=== PATIENT | female | born 1940 | race Caucasian/White ===

== ENCOUNTER 2016-11-23 21:02 | Emergency (ER) | payer OTHER, MEDICARE ==
[~2016-11-23] VITALS: Ht 157.5 cm; Wt 68.0 kg
[2016-11-23 21:26] VITALS: BP 147/78
[2016-11-23] MEDS ORDERED: KEFLEX500 M1 PO (21:46)
--- NOTE | 2016-11-23 21:47 | ED SKIN/ALLERGY COMPLAINT ---
History of Present Illness General Chief Complaint: Laceration Procedure Stated Complaint: LEFT POINTER FINGER LAC Source: patient Exam Limitations: no limitations Vital Signs & Intake/Output Vital Signs & Intake/Output Vital Signs Date Time Temp Pulse Resp B/P Pulse O2 O2 Flow FiO2 Ox Delivery Rate 11/23 2125 97.8 78 18 147/78 98 Room Air Triage Note: RECEIVED 76 YO FEMALE C/O LACERATION TO LEFT INDEX FINGER. OCCURED A FEW HOURS AGO. Triage Nurses Notes Reviewed? yes HPI: THIS PATIENT is a 76-year-old female with a past medical history including diabetes who presented to the emergency department today for evaluation of a laceration to her left index finger. The patient reported that she was trying to cut a cantaloupe when the knife slipped and caught her finger. She reported that she is having 4 out of 10, throbbing, nonradiating, constant pain in her finger. She denied any numbness or tingling. No palliative factors. No provoking factors. She is unsure of her last tetanus immunization. (LIANA VILLARREAL,ANA) Allergies Coded Allergies: protamine (THROAT CLOSED 11/23/16) Reconcile Medications Aspirin (Ecotrin*) 81 MG TABLET.DR 1 TAB PO DAILY HEART/BLOOD (Reported) Carvedilol 12.5 MG TABLET 1 TAB PO BID HEART/BP (Reported) Cephalexin (Keflex) 500 MG CAPSULE 1 CAP PO TID WOUND Cholecalciferol (Vitamin D3) (Vitamin D) 1,000 UNIT TABLET 1 TAB PO DAILY SUPPLEMENT (Reported) Cinnamon Bark (Cinnamon) (Unknown Strength) CAPSULE (Unknown Dose) PO DAILY SUPPLEMENT (Reported) Digoxin 125 MCG TABLET 1 TAB PO DAILY HEART (Reported) Duloxetine HCl 30 MG CAPSULE.DR 1 CAP PO DAILY MENTAL HEALTH (Reported) Fluticasone/Vilanterol (Breo Ellipta 100-25 Mcg INH) 100 MCG-25 MCG/DOSE BLST.W.DEV 1 PUFF INH DAILY COPD/ASTHMA (Reported) Furosemide 40 MG TABLET 1 TAB PO BID DIURETIC (Reported) Ipratropium [place] (Atrovent Hfa) 17 MCG/ACTUATION HFA.AER.AD 1 PUFF INH TID COPD/ASTHMA (Reported) Linagliptin (Tradjenta) 5 MG TABLET 1 TAB PO DAILY DM (Reported) Liraglutide (Victoza 3-Vincenzo) 0.6 MG/0.1 ML (18 MG/3 ML) PEN.INJCTR 1.8 MG SC DAILY DM (Reported) Lisinopril 10 MG TABLET 1 TAB PO DAILY BP (Reported) Magnesium Oxide (Magnesium) 500 MG CAPSULE 1 CAP PO DAILY SUPPLEMENT ( Reported) Metformin HCl 1,000 MG TABLET 1 TAB PO BID DM (Reported) Montelukast Sodium 10 MG TABLET 1 TAB PO DAILY ALLERGIES (Reported) Pantoprazole Sodium 40 MG TABLET.DR 1 TAB PO DAILY GI (Reported) Pregabalin (Lyrica) 75 MG CAPSULE 1 CAP PO TID NERVE PAIN (Reported) Simvastatin (Simvastatin*) 20 MG TABLET 1 TAB PO EOD CHOLESTEROL (Reported) Solifenacin Succinate (Vesicare) 10 MG TABLET 1 TAB PO DAILY BLADDER ( Reported) (WILDA MCKINNEY,ANDRES Nance) Past History Travel History Traveled to [place] past 21 day No Medical History Any Pertinent Medical History? see below for history Neurological: NONE EENT: NONE Cardiovascular: hypertension, pacemaker, AICD Respiratory: asthma, COPD Gastrointestinal: NONE Hepatic: NONE Renal: NONE Musculoskeletal: NONE Psychiatric: NONE Endocrine: diabetes Blood Disorders: NONE Cancer(s): NONE Pneumonia Vaccine: 09/11/02 Influenza Vaccine: 09/11/12 Surgical History Surgical History: non-contributory Psychosocial History Who do you live with Patient/Self Services at Home None What is your primary language Grenadian Tobacco Use: Quit >30 days ago Family History Hx Contributory? No (ANA GAINES PA-C) Review of Systems Review of Systems Constitutional: Reports: no symptoms. EENTM: Reports: no symptoms. Respiratory: Reports: no symptoms. Cardiovascular: Reports: no symptoms. GI: Reports: no symptoms. Musculoskeletal: Reports: no symptoms. Skin: Reports: see HPI. Neurological/Psychological: Reports: no symptoms. All Other Systems: Reviewed and Negative (ANA GAINES PA-C) Physical Exam Physical Exam General Appearance: well developed/nourished, no apparent distress, alert, awake Comments: Well-developed well-nourished person in no acute distress HEENT: Head normocephalic, moist mucous membranes Neck: Supple, no lymphadenopathy Back: Normal gait Respiratory: No respiratory distress. Speaking in full sentences Extremities: No edema, full range of motion Neuro: Alert and oriented x3 Psych: Mood affect normal, normal memory normal judgment. Skin: Warm and dry, no rash on exposed skin. Small skin avulsion to the lateral aspect of the left second digit with no active bleeding, no stranding erythema or edema, and no foreign body. Mildly tender to palpation (ANA GAINES PA-C) Progress Differential Diagnosis: SKIN LACERATION, SKIN AVULSION, SKIN TEAR, TENDON INJURY Plan of Care: Current Medications Sig/Salma Start time Last Medication Dose Stop Time Status Admin Tetanus/Diphtheria 0.5 ML ONCE ONE 11/23 2144 UNVr Toxoids Adsorbed 11/23 2145 (Decavac) Comments: This wound was prepped with Betadine and irrigated extensively. Bacitracin was applied to the wound as well as a sterile dressing. This patient will be started on an outpatient antibiotic and instructed to keep the wound clean. Stable for discharge home. (ANA GAINES PA-C) Departure Departure Disposition: HOME OR SELF CARE Condition: Stable Clinical Impression Primary Impression: Skin avulsion Referrals: LALI BILLINGS MD (PCP/Family) Additional Instructions: Keep the wound site clean and dry. You may apply bacitracin to the wound once daily for 3 days. Please take the antibiotic for the full duration. Follow-up with your primary care physician. Return for any worsening symptoms or concerns. Departure Forms: Customer Survey General Discharge Information Prescriptions: Current Visit Scripts Cephalexin (Keflex) 1 CAP PO TID #15 CAP (ANA GAINES PA-C) PA/BARREL CHARRER HELPER Co-Sign Statement Statement: ED Attending supervision documentation- [x] I saw and evaluated the patient. I have also reviewed all the pertinent lab results and diagnostic results. I agree with the findings and the plan of care as documented in the PA's/BARREL CHARRER HELPER's documentation. [] I have reviewed the ED Record and agree with the PA's/BARREL CHARRER HELPER's documentation. [] Additions or exceptions (if any) to the PAs/BARREL CHARRER HELPER's note and plan are summarized below: [] (WILDA MCKINNEY,ANDRES Nance)
[2016-11-23] MEDS ORDERED: DULOXETINE HCL30 MG PO (21:49)
[2016-11-23] MEDS ORDERED: VICTOZA 3-0.6 MG/0.1 SC (21:49)
[2016-11-23] MEDS ORDERED: VESICARE10 MG PO (21:49)
[2016-11-23] MEDS ORDERED: PANTOPRAZOLE SO40 M1 PO (21:49)
[2016-11-23] MEDS ORDERED: CARVEDILOL12.5 M1 PO (21:50)
[2016-11-23] MEDS ORDERED: DIGOXIN125 MCG PO (21:50)
[2016-11-23] MEDS ORDERED: METFORMIN HCL1000 M1 PO (21:50)
[2016-11-23] MEDS ORDERED: MONTELUKAST SOD10 M1 PO (21:50)
[2016-11-23] MEDS ORDERED: LYRICA75 M1 PO (21:51)
[2016-11-23] MEDS ORDERED: LISINOPRIL10 M1 PO (21:51)
[2016-11-23] MEDS ORDERED: FUROSEMIDE40 M1 PO (21:51)
[2016-11-23] MEDS ORDERED: BREO ELLIPTA 11 EACH INH (21:52)
[2016-11-23] MEDS ORDERED: ASPIRIN EC81 M1 PO (21:52)
[2016-11-23] MEDS ORDERED: ATROVENT HFA12.9 GM INH (21:52)
[2016-11-23] MEDS ORDERED: TRADJENTA5 M1 PO (21:53)
[2016-11-23] MEDS ORDERED: VITAMIN D1000 UNIT PO (21:53)
[2016-11-23] MEDS ORDERED: MAGNESIUM500 M2 PO (21:53)
[2016-11-23] MEDS ORDERED: CINNAMON500 M1 PO (21:53)
[2016-11-23] MEDS ORDERED: SIMVASTATIN20 M2 PO (21:54)
[2017-02-21] MEDS ORDERED: VICODIN 5-3001 EACH PO (12:08)
[2017-02-21] MEDS ORDERED: AUGMENTIN 875-1 EACH PO (12:08)
[2017-02-21] MEDS ORDERED: NORCO 5-325 TA1 EACH PO (12:16)
== END 2016-11-23 22:05 ==
LOC: ERH 21:02
DX: S61.201A Unspecified open wound of left index finger without damage to nail, initial encounter (principal); W26.0XXA Contact with knife, initial encounter; Y93.G1 Activity, food preparation and clean up; Y92.9 Unspecified place or not applicable
CPT/HCPCS: 90471; 90714

== ENCOUNTER 2017-01-17 09:12 | Emergency (ER) | payer OTHER, MEDICARE ==
[~2017-01-17] VITALS: Ht 157.5 cm; Wt 68.5 kg
[~2017-01-17 09:12] MED LIST: ASPIRIN EC81 M1 PO; ATROVENT HFA12.9 GM INH; BREO ELLIPTA 11 EACH INH; CARVEDILOL12.5 M1 PO; CINNAMON500 M1 PO; DIGOXIN125 MCG PO; DULOXETINE HCL30 MG PO; FUROSEMIDE40 M1 PO; KEFLEX500 M1 PO; LISINOPRIL10 M1 PO; LYRICA75 M1 PO; MAGNESIUM500 M2 PO; METFORMIN HCL1000 M1 PO; MONTELUKAST SOD10 M1 PO; PANTOPRAZOLE SO40 M1 PO; SIMVASTATIN20 M2 PO; TRADJENTA5 M1 PO; VESICARE10 MG PO; VICTOZA 3-0.6 MG/0.1 SC; VITAMIN D1000 UNIT PO
--- NOTE | 2017-01-17 10:42 | ED DYSPNEA/ASTHMA COMPLAINT ---
History of Present Illness General Chief Complaint: Dyspnea (COPD, CHF, Other) Stated Complaint: BIBA SOB Source: patient Exam Limitations: no limitations Allergies Coded Allergies: protamine (THROAT CLOSED 11/23/16) Reconcile Medications Albuterol Sulfate 1.25 MG/3 ML VIAL.NEB 1 Vial INH/SAYDA Q4-6 PRN SOB Amoxicillin/Potassium Clav (Augmentin 875-125 Tablet) 875 MG-125 MG TABLET 1 TAB PO BID BRONCHITIS Aspirin (Ecotrin*) 81 MG TABLET.DR 1 TAB PO DAILY HEART/BLOOD (Reported) Carvedilol 12.5 MG TABLET 1 TAB PO BID HEART/BP (Reported) Cephalexin (Keflex) 500 MG CAPSULE 1 CAP PO TID WOUND Cholecalciferol (Vitamin D3) (Vitamin D) 1,000 UNIT TABLET 1 TAB PO DAILY SUPPLEMENT (Reported) Cinnamon Bark (Cinnamon) (Unknown Strength) CAPSULE (Unknown Dose) PO DAILY SUPPLEMENT (Reported) Digoxin 125 MCG TABLET 1 TAB PO DAILY HEART (Reported) Duloxetine HCl 30 MG CAPSULE.DR 1 CAP PO DAILY MENTAL HEALTH (Reported) Fluticasone/Vilanterol (Breo Ellipta 100-25 Mcg INH) 100 MCG-25 MCG/DOSE BLST.W.DEV 1 PUFF INH DAILY COPD/ASTHMA (Reported) Furosemide 40 MG TABLET 1 TAB PO BID DIURETIC (Reported) Ipratropium [place] (Atrovent Hfa) 17 MCG/ACTUATION HFA.AER.AD 1 PUFF INH TID COPD/ASTHMA (Reported) Linagliptin (Tradjenta) 5 MG TABLET 1 TAB PO DAILY DM (Reported) Liraglutide (Victoza 3-Vincenzo) 0.6 MG/0.1 ML (18 MG/3 ML) PEN.INJCTR 1.8 MG SC DAILY DM (Reported) Lisinopril 10 MG TABLET 1 TAB PO DAILY BP (Reported) Magnesium Oxide (Magnesium) 500 MG CAPSULE 1 CAP PO DAILY SUPPLEMENT ( Reported) Metformin HCl 1,000 MG TABLET 1 TAB PO BID DM (Reported) Montelukast Sodium 10 MG TABLET 1 TAB PO DAILY ALLERGIES (Reported) Pantoprazole Sodium 40 MG TABLET.DR 1 TAB PO DAILY GI (Reported) Prednisone 10 MG TABLET 1 TAB PO DAILY BRONCHITIS 4 TABS PO DAILY X 4 DAYS Pregabalin (Lyrica) 75 MG CAPSULE 1 CAP PO TID NERVE PAIN (Reported) Simvastatin (Simvastatin*) 20 MG TABLET 1 TAB PO EOD CHOLESTEROL (Reported) Solifenacin Succinate (Vesicare) 10 MG TABLET 1 TAB PO DAILY BLADDER ( Reported) Triage Note: SEE JEFF RN NOTE Triage Nurses Notes Reviewed? yes Onset: Gradual Duration: day(s): (4) Timing: recent history Severity: moderate Activities at Onset: none Prior Episodes/Possible Cause: occasional episodes Associated Symptoms: cough HPI: Patient is a 76-year-old female with history of COPD presenting to the emergency Department chief complaint of increasing wheezing, shortness of breath, intermittently productive cough of yellow sputum has been getting worse over the past 4-5 days. No fevers or chills. She called her primary care physician and a centimeter and a prescription per she's been taking that since Saturday. Also reports sore throat that has not been improving. Denies any chest pain or palpitations. Denies any lower extremity edema. No recent travel. Denies any abdominal pain or back pain. No numbness or tingling. (STIVEN LOVE) Vital Signs & Intake/Output Vital Signs & Intake/Output Vital Signs Date Time Temp Pulse Resp B/P B/P Pulse O2 O2 Flow FiO2 Mean Ox Delivery Rate 01/17 1152 93 01/17 1152 97.8 80 20 120/78 95 01/17 0925 98 Room Air 01/17 0921 97.8 80 20 130/80 98 Room Air Past History Travel History Traveled to [place] past 21 day No Medical History Any Pertinent Medical History? see below for history Neurological: NONE EENT: NONE Cardiovascular: hypertension, pacemaker, AICD Respiratory: asthma, COPD Gastrointestinal: NONE Hepatic: NONE Renal: NONE Musculoskeletal: NONE Psychiatric: NONE Endocrine: diabetes Blood Disorders: NONE Cancer(s): NONE Tetanus Vaccine: 11/23/16 Surgical History Surgical History: non-contributory Psychosocial History Who do you live with Patient/Self Services at Home None What is your primary language Yakut Tobacco Use: Never used Family History Hx Contributory? No (STIVEN LOVE) Review of Systems Review of Systems Constitutional: Reports: no symptoms. Comments Review of systems: See HPI, All other systems negative. Constitutional, no chills fever or weight loss HEENT: No visual changes Cardiovascular: No chest pain ,palpitation , orthopnea or ankle swelling Skin, no jaundice no rashes Respiratory: No dyspnea OR hemoptysis GI: No nausea no vomiting : No dysuria No hematuria Muscle skeletal: no back pain, no neck pain, Neurologic: No numbness no confusion Psych: No stress anxiety or depression,. Heme/endocrine: No bruising no bleeding no polyuria or polydipsia Immunology: No splenectomy or history of AIDS (STIVEN LOVE) Physical Exam Physical Exam General Appearance: well developed/nourished, no apparent distress, alert, awake , comfortable Respiratory: wheezing Comments: Well-developed well-nourished person in no acute distress HEENT: Pupils equally round and reactive to light and accommodation. Nose is atraumatic. External auditory canal and Tympanic membranes clear. Pharynx is mildly erythematous, slight tonsillar enlargement bilaterally. Positive white exudate bilaterally. Uvula midline. Clearing secretions without difficulty.. No swelling or edema. Raspy voice. Neck: Supple, no lymphadenopathy, normal range of motion without pain or tenderness Back: Nontender Cardiovascular: Regular rate and rhythms no murmurs rubs or gallops, normal JVP Respiratory: Chest nontender. No respiratory distress.diffuse wheezing to auscultation bilaterallys, slight scattered rhonchi. Extremity: No edema, no calf tenderness to palpation, normal and equal pulses. Neuro: Alert oriented x3 Skin: No appreciable rash on exposed skin, skin is warm and dry. Psych: Mood and affect is normal, memory and judgment is normal. Core Measures ACS in differential dx? Yes Severe Sepsis Present: No Septic Shock Present: No (STIVEN LOVE) Progress Differential Diagnosis: asthma, AMI, bronchitis, CHF, COPD, pneumonia, pneumothorax, STREP, URI, SINUSITIS Diagnostic Imaging: Viewed by Me: Radiology Read. Discussed w/RAD: Radiology Read. CXR Impression: COPD Initial ED EKG: NSR 74 BPM, PACED Comments: Patient had much improvement after 2 DuoNeb treatments. Patient also given dose of steroids. She'll be treated for COPD exacerbation as rapid strep was negative. Started on Augmentin and prednisone for the next 4 days. She'll follow-up with PCP. Also given nebulizer albuterol refills. D/W DR ASTUDILLO AND DULCE RUST WITH PLAN. (STIVEN LOVE) Plan of Care: Orders Procedure Date/time Status THROAT CULTURE W/QUICK STREP 01/17 1058 Active EKG 01/17 0913 Active Departure Departure Time of Disposition: 1208 Disposition: HOME OR SELF CARE Condition: Stable Clinical Impression Primary Impression: COPD exacerbation Secondary Impressions: Pharyngitis Qualifiers: Pharyngitis/tonsillitis etiology: unspecified etiology Qualified Code: J02.9 - Acute pharyngitis, unspecified Referrals: LALI BILLINGS MD (PCP/Family) Additional Instructions: Follow-up with your primary care physician calling appointment. Take Z-Vincenzo as prescribed. Take medicine as back as prescribed. Use nebulizer treatments as directed. Increase fluids. Return for worsening symptoms or concerns. Stop taking Keflex. Departure Forms: Customer Survey General Discharge Information Prescriptions: Current Visit Scripts Amoxicillin/Potassium Clav (Augmentin 875-125 Tablet) 1 TAB PO BID #20 TAB Prednisone 1 TAB PO DAILY #16 TAB 4 TABS PO DAILY X 4 DAYS Albuterol Sulfate 1 Vial INH/SAYDA Q4-6 PRN SOB #150 ML (STIVEN LOVE) PA/CONSTRUCTION PROJECT ASSISTANT Co-Sign Statement Statement: ED Attending supervision documentation- [X] I saw and evaluated the patient. I have also reviewed all the pertinent lab results and diagnostic results. I agree with the findings and the plan of care as documented in the PA's/CONSTRUCTION PROJECT ASSISTANT's documentation. [] I have reviewed the ED Record and agree with the PA's/CONSTRUCTION PROJECT ASSISTANT's documentation. [] Additions or exceptions (if any) to the PAs/CONSTRUCTION PROJECT ASSISTANT's note and plan are summarized below: [] (WILDA MCKINNEY,ANDRES Nance) Critical Care Note Critical Care Note Critical Care Time: non-applicable (STIVEN LOVE)
--- NOTE | 2017-01-17 11:47 | RADIOLOGY REPORT ---
EXAMINATION: XR CHEST CLINICAL INFORMATION: Cough. Evaluate for pneumonia. COMPARISON: Chest x-ray dated 11/02/2012. TECHNIQUE: 2 views of the chest were obtained. FINDINGS: Right atrial and coronary sinus pacer leads and right ventricular ICD lead are seen in place, unchanged. The cardiomediastinal silhouette is borderline enlarged, unchanged. Calcification and tortuosity of the aorta is also stable. Lungs are hyperinflated, raising the suspicion of obstructive changes. No focal consolidation, effusion or pneumothorax is seen. Bony structures are grossly unremarkable. IMPRESSION: Findings consistent with obstructive lung disease. No focal pneumonia.
[2017-01-17 11:52] VITALS: BP 120/78
[2017-01-17] MEDS ORDERED: PREDNISONE10 M2 PO (12:10)
[2017-01-17] MEDS ORDERED: AUGMENTIN 875-1 EACH PO (12:10)
[2017-01-17] MEDS ORDERED: ALBUTEROL1.25 MG/1 INH/SOL (12:11)
[2017-02-21] MEDS ORDERED: VICODIN 5-3001 EACH PO (12:08)
[2017-02-21] MEDS ORDERED: AUGMENTIN 875-1 EACH PO (12:08)
[2017-02-21] MEDS ORDERED: NORCO 5-325 TA1 EACH PO (12:16)
== END 2017-01-17 12:23 ==
LOC: ERH 09:12
DX: J44.1 Chronic obstructive pulmonary disease with (acute) exacerbation (principal); J02.9 Acute pharyngitis, unspecified
CPT/HCPCS: 1263; 93005; 93010

== ENCOUNTER 2017-02-23 12:07 | Emergency (ER) | payer OTHER, MEDICARE ==
[~2017-02-23] VITALS: Ht 157.5 cm; Wt 68.5 kg
[~2017-02-23 12:07] MED LIST changes: +ALBUTEROL1.25 MG/1 INH/SOL; +AUGMENTIN 875-1 EACH PO; +NORCO 5-325 TA1 EACH PO; +PREDNISONE10 M2 PO; +VICODIN 5-3001 EACH PO
[2017-02-23 12:12] VITALS: BP 107/63
== END 2017-02-23 13:09 | disposition admitted as inpatient to this hospital (09) ==
LOC: ERH 12:07
DX: L03.115 Cellulitis of right lower limb (principal)

== ENCOUNTER 2018-01-15 10:44 | Emergency (ER) | payer OTHER, MEDICARE ==
[~2018-01-15] VITALS: Ht 157.5 cm; Wt 72.6 kg
[~2018-01-15 10:44] MED LIST changes: +TRAMADOL HCL50 M1 PO
[2018-01-15] MEDS ORDERED: KEFLEX500 M1 PO (12:24)
[2018-01-15] MEDS ORDERED: COLCHICINE0.6 M2 PO (12:24)
[2018-01-15] MEDS ORDERED: PREDNISONE20 M1 PO (12:24)
--- NOTE | 2018-01-15 12:24 | ED GENERAL ADULT ---
History of Present Illness General Chief Complaint: General Adult Stated Complaint: L FINGER/L FOOT SWELLING Source: patient Exam Limitations: no limitations Vital Signs & Intake/Output Vital Signs & Intake/Output Vital Signs Date Time Temp Pulse Resp B/P B/P Pulse O2 O2 Flow FiO2 Mean Ox Delivery Rate 01/15 1249 Room Air 01/15 1249 98.1 88 18 120/74 96 Room Air 01/15 1058 97.8 94 18 123/68 95 Allergies Coded Allergies: protamine (THROAT CLOSED 01/15/18) Reconcile Medications Albuterol Sulfate 1.25 MG/3 ML VIAL.NEB 1 Vial INH/SAYDA Q4-6 PRN SOB Amoxicillin/Potassium Clav (Augmentin 875-125 Tablet) 875 MG-125 MG TABLET 1 TAB PO BID CELLULITIS Aspirin (Ecotrin*) 81 MG TABLET.DR 1 TAB PO DAILY HEART/BLOOD (Reported) Carvedilol 12.5 MG TABLET 1 TAB PO BID HEART/BP (Reported) Cephalexin (Keflex) 500 MG CAPSULE 1 CAP PO TID CELLULITIS Cholecalciferol (Vitamin D3) (Vitamin D) 1,000 UNIT TABLET 1 TAB PO DAILY SUPPLEMENT (Reported) Cinnamon Bark (Cinnamon) (Unknown Strength) CAPSULE (Unknown Dose) PO DAILY SUPPLEMENT (Reported) Colchicine 0.6 MG TABLET 1 TAB PO BID GOUT Duloxetine HCl 30 MG CAPSULE.DR 1 CAP PO DAILY MENTAL HEALTH (Reported) Fluticasone/Vilanterol (Breo Ellipta 100-25 Mcg INH) 100 MCG-25 MCG/DOSE BLST.W.DEV 1 PUFF INH DAILY COPD/ASTHMA (Reported) Furosemide 40 MG TABLET 1 TAB PO BID DIURETIC (Reported) Ipratropium [place] (Atrovent Hfa) 17 MCG/ACTUATION HFA.AER.AD 1 PUFF INH TID COPD/ASTHMA (Reported) Linagliptin (Tradjenta) 5 MG TABLET 1 TAB PO DAILY DM (Reported) Liraglutide (Victoza 3-Vincenzo) 0.6 MG/0.1 ML (18 MG/3 ML) PEN.INJCTR 1.8 MG SC DAILY DM (Reported) Lisinopril 10 MG TABLET 1 TAB PO DAILY BP (Reported) Magnesium Oxide (Magnesium) 500 MG CAPSULE 1 CAP PO DAILY SUPPLEMENT ( Reported) Metformin HCl 1,000 MG TABLET 1 TAB PO BID DM (Reported) Montelukast Sodium 10 MG TABLET 1 TAB PO DAILY ALLERGIES (Reported) Pantoprazole Sodium 40 MG TABLET.DR 1 TAB PO DAILY GI (Reported) Prednisone 20 MG TABLET 1 TAB PO DAILY GOUT Pregabalin (Lyrica) 75 MG CAPSULE 1 CAP PO TID NERVE PAIN (Reported) Simvastatin (Simvastatin*) 20 MG TABLET 1 TAB PO EOD CHOLESTEROL (Reported) Solifenacin Succinate (Vesicare) 10 MG TABLET 1 TAB PO DAILY BLADDER ( Reported) Tramadol HCl 50 MG TABLET 1-2 TAB PO Q8P PRN PAIN Triage Note: PT TO WITH C/O LEFT INNER ANKLE REDNESS, AND ALSO SWELLING TO LEFT MIDDLE FINGER X 2 DAYS. PT DENIES FALL OR KNOWN INJURY TO THE AREAS. Triage Nurses Notes Reviewed? yes Onset: Abrupt Duration: day(s):, constant Timing: recent history Injury Environment: home Severity: moderate HPI: 77-year-old female comes into the emergency room with complaints of swelling and pain to her left middle finger as well as is her left medial ankle. Patient has a history of gout. Denies any fever chills vomiting or flulike symptoms. Comes in for further evaluation. Symptoms been going on for a few days. (Woodrow Shah) Past History Travel History Traveled to [place] past 21 day No Medical History Any Pertinent Medical History? see below for history Neurological: NONE EENT: NONE Cardiovascular: hypertension, pacemaker, AICD Respiratory: asthma, COPD Gastrointestinal: NONE Hepatic: NONE Renal: NONE Musculoskeletal: NONE Psychiatric: NONE Endocrine: diabetes Blood Disorders: NONE Cancer(s): NONE PATIENT SUPPORT REPRESENTATIVE/Reproductive: NONE Tetanus Vaccine: 11/23/16 Surgical History Surgical History: non-contributory Psychosocial History Who do you live with Patient/Self Services at Home None What is your primary language Japanese Tobacco Use: Quit >30 days ago ETOH Use: denies use Illicit Drug Use: denies illicit drug use Family History Hx Contributory? No (Woodrow Shah) Review of Systems Review of Systems Constitutional: Reports: no symptoms. EENTM: Reports: no symptoms. Respiratory: Reports: no symptoms. Cardiovascular: Reports: no symptoms. GI: Reports: no symptoms. Genitourinary: Reports: no symptoms. Musculoskeletal: Reports: see HPI. Skin: Reports: see HPI. Neurological/Psychological: Reports: no symptoms. Hematologic/Endocrine: Reports: no symptoms. Immunologic/Allergic: Reports: no symptoms. All Other Systems: Reviewed and Negative (Woodrow Shah) Physical Exam Physical Exam General Appearance: well developed/nourished, alert, awake Head: atraumatic Eyes: Bilateral: normal appearance. Ears, Nose, Throat: normal ENT inspection Neck: normal inspection Back: normal range of motion Extremities: erythema to the entire left middle finger and swelling, swelling in the joint, tenderness with range of motion, mild warmth, no purulent discharge Some erythema to the Left medial ankle, some mild warmth, located in the joint, no open wounds, no purulent discharge Neurologic/Psych: awake, alert, oriented x 3 Skin: intact, normal color Core Measures ACS in differential dx? No CVA/TIA Diagnosis: No Sepsis Present: No Sepsis Focused Exam Completed? No (Woodrow Shah) Progress Differential Diagnoses I considered the following diagnoses in my evaluation of the patient: Acute gouty arthritis, cellulitis, septic joint, Plan of Care: 01/15/2018 12:37:47 PM Patient has a history of gout. Symptoms most consistent with gout. Patient was also covered with Keflex in case of a typical cellulitis. Follow-up with PCP. Return if any other concerns. Case discussed with Dr. Cain Initial ED EKG: none (Woodrow Shah) Departure Departure Disposition: HOME OR SELF CARE Condition: Stable Clinical Impression Primary Impression: Acute gouty arthritis Referrals: Marcelo Lima MD (PCP/Family) Additional Instructions: Take Keflex, prednisone, and colchicine as prescribed. Follow-up with your primary care doctor. Return if any concerns worsening symptoms. Please go over all results of today's visit with your primary care doctor. Contact your primary care doctor to let them know you were here in the emergency room. There may be nonspecific findings which may not be related to your visit today here in the emergency room but may require further evaluation and chronic monitoring by your primary care doctor. If you had a laceration today the chance of foreign body always remains. You should follow-up with your primary care doctor for recheck in 3-5 days for a wound check. If you had an x-ray done there is a chance that a fracture could have been missed on initial read and you should follow-up with your primary care doctor for repeat x-rays if symptoms persist. If your blood pressure was elevated here in the emergency room please have rechecked by [facility] primary care doctor within the next 48. If you were prescribed a narcotic here in the emergency room or any type of controlled substances you're not allowed to drive while taking this medication or operate any type of heavy machinery. Narcotics can make you feel lightheaded dizziness nausea and can cause constipation. You may need to picking table worker a stool softener. Thank you for choosing [facility] emergency room. Please return to the emergency room immediately if you have any other concerns worsening of symptoms. Departure Forms: Customer Survey General Discharge Information Prescriptions: Current Visit Scripts Cephalexin (Keflex) 1 CAP PO TID #30 CAP Prednisone 1 TAB PO DAILY #5 TAB Colchicine 1 TAB PO BID #14 TAB (Woodrow Shah) PA/GLASS INSTALLER Co-Sign Statement Statement: ED Attending supervision documentation- [X] I saw and evaluated the patient. I have also reviewed all the pertinent lab results and diagnostic results. I agree with the findings and the plan of care as documented in the PA's/GLASS INSTALLER's documentation. [] I have reviewed the ED Record and agree with the PA's/GLASS INSTALLER's documentation. [] Additions or exceptions (if any) to the PAs/GLASS INSTALLER's note and plan are summarized below: [] (Dax Cain DO) Critical Care Note Critical Care Note Critical Care Time: non-applicable (Woodrow Shah)
[2018-01-15 12:49] VITALS: BP 120/74
== END 2018-01-15 12:50 ==
LOC: ERH 10:44
DX: M10.9 Gout, unspecified (principal)